=== PATIENT | female | born 1940 | race Caucasian/White ===

== ENCOUNTER → 2018-05-02 17:47 | Outpatient (CLI) | payer MEDICARE, OTHER, SELFPAY ==
--- NOTE | 2018-05-02 | LES_PTH ---
PATIENT: ROLY BECKER LOC: [facility] U#:[id number] AGE/SX: 84/F ROOM: RE05/02/[address]: Dr. Shane Sánchez MD : 1940 BED: DIS: SPEC #: [id number] RECD: 05/02/18 17:48 STATUS: NESHA DEWAYNE #: [id number] LENNY: 05/02/18 00:[address]: Shane Sánchez DEPT: SURGICAL PATHOLOGY RECD BY: Osman Snyder Tissues: Skin of eyelid, NOS Procedures: Surgery Specimen Level IV HEADER OPERATION: Removal of lesion LLL PRE-OP DIAGNOSIS: Increased size x1 year with pigmentation TISSUE SUBMITTED: Lesion LLL MICROSCOPIC DIAGNOSIS Lesion of left lower eyelid, biopsy: Seborrheic keratosis, mild and inflamed. AM:tyrone 05/04/18 MICROSCOPIC DESCRIPTION Slides are reviewed. GROSS DESCRIPTION Received in fixative is one container labeled with the patient's name and designated LLL. The specimen consists of a piece of brown-brown skin measuring 0.5 x 0.5 x 0.2 cm. The entire specimen is submitted in one cassette. / SJ:rg 05/03/18 TC:5 [facility]: [id number]
== END ==
PROVIDERS: Visit Provider Ophthalmology
DX: L98.8 Other specified disorders of the skin and subcutaneous tissue (principal)
CPT/HCPCS: 88305